=== PATIENT | male | born 1960 | race Caucasian/White ===

== ENCOUNTER → 2016-04-25 | Outpatient (CLI) | payer OTHER | END | disposition home or self-care (01) | LOC: PTH.S 04-19 08:45 | DX: J44.9 Chronic obstructive pulmonary disease, unspecified (principal); I10 Essential (primary) hypertension ==

== ENCOUNTER → 2016-07-19 | Outpatient (CLI) | payer SELFPAY | END | disposition home or self-care (01) | LOC: RESC 13:00 | DX: J44.9 Chronic obstructive pulmonary disease, unspecified (principal) ==